=== PATIENT | male | born 1960 | race Caucasian/White ===

== ENCOUNTER → 2025-10-14 08:06 | Outpatient (AMB) | payer OTHER, SELFPAY ==
--- OUTSIDE RECORDS SUMMARY | 2025-10-14 08:09 | XMS_ITS | Clinical Summary ---
Author Organization [address] Address [address] [place] [phone] Phone Care Team Providers Care Finance Executive Name Role Phone Unavailable Primary Care Provider Unavailabl e Allergies No known active allergies Medications atorvastatin (LIPITOR) 10 mg tablet Take 1 tablet (10 mg total) by mouth daily. Active tamsulosin (FLOMAX) 0.4 mg 24 hr capsule Take 1 capsule (0.4 mg total) by mouth daily. Active Encounters Date Type Department Care Team Description 07/18/2025 3:36 PM EDT - 07/18/2025 8:14 PM EDT [facility] [address] [place] [address] Veda Brewer MD Syncope, unspecified syncope type (Primary Dx) Discharge Disposition: Home or Self Care 07/18/2025 Travel from Last 3 Months Social History Tobacco Use Types Packs/Day Years Used Date Smoking Tobacco: Never Assessed Interpersonal Safety Answer Date Record ed Is there anyone in your life that is hurting or threatening you in anyway? no 07/18/2025 Physical Indicators of Abuse No evidence of phys ical abuse 07/18/2025 Sex and Gender Information Value Date Recorded Sex Assigned at Not on file Legal Sex Male 3:36 PM EDT Gender Identity Not on file Sexual Orientation Not on file Last Filed Vital Signs Vital Sign Reading Time Taken Comments Blood Pressure 152/78 07/18/2025 5:16 PM EDT Pulse 54 07/18/2025 5:16 PM EDT Temperature 36.7 C (98 F) 07/18/2025 3:37 PM EDT Respiratory Rate 18 07/18/2025 5:16 PM EDT Oxygen Saturation 98% 07/18/2025 5:16 PM EDT Inhaled Oxygen Concentration - - Weight 79.5 kg (175 lb 4.3 oz) 07/18/2025 3:37 P M EDT Height - - Body Mass Index - - Plan of Treatment Health Maintenance Due Date Last Done Comments HIV screening 1972 Hepatitis C screening 1977 Tetanus adult (Td q 10,TDAP once) 1979 Lipid disorder screening 1999 Colon cancer screening, Colonoscopy 2004 Pneumococcal Vaccine (50+ years) (1 of 1 - PCV) 2009 Shingles vaccine (Shingrix) (1 of 2 - Shingrix (RZV) 2 Dose Standard Series) 2009 Influenza vaccine 05/22/2025 11/12/2021, , 08/22/2018, Additional history exists Covid-19 vaccine series (2 - 2024- season) 2025 07/17/2022 Diabetes screening 07/18/2028 07/18/2025 RSV Immunization (1 - 1-dose 75+ series) 2034 Meningococcal B Vaccine Aged Out No l onger eligible based on patient's age to complete this topic Meningococcal Vaccine Aged Out No rama khushboo eligible based on patient's age to complete this topic Procedures Procedure Name Priority Date/Time Associated Diagnosis Comments CT HEAD WO IV CONTRAST STAT 07/18/2025 6:13 PM EDT TROPONIN T HIGH SENSITIVITY, 1 HOUR WITH REFLEX (BH GH LMW YH) STAT - Timed 07/18/2025 5:07 PM EDT XR CHEST PA AND LATERAL Within 1 hour (STAT) 07/18/2025 3:59 PM EDT BASIC METABOLIC PANEL STAT 07/18/2025 3:58 PM EDT CBC AND DIFFERENTIAL Routine 07/18/2025 3:58 PM EDT MAGNESIUM STAT 07/18/2025 3:58 PM EDT NT-PROBRAIN NATRIURETIC PEPTIDE STAT 07/18/2025 3:58 PM EDT TSH W/REFLEX TO FT4 ( GH LMW Q YH) STAT 07/18/2025 3:58 PM EDT BASIC METABOLIC PANEL STAT 07/18/2025 3:58 PM EDT CBC WITH AUTO DIFFERENTIAL Routine 07/18/2025 3:58 PM EDT TROPONIN T HIGH SENSITIVITY, 0 HOUR BASELINE WITH REFLEX ( GH LMW YH) STAT 07/18/2025 3:58 PM EDT EKG STAT 07/18/2025 3:42 PM EDT from Last 3 Months Results * CT Head wo IV Contrast (07/18/2025 6:13 PM EDT) Anatomical Region Laterality Modality Head, Ortho Head Computed Tomogr aphy 07/18/2025 6:48 PM EDT Impressions 07/19/2025 6:17 AM EDT 1. There is mild generalized atrophy and chronic white matter ischemic change. No acute intracranial abnormality. Reported and signed by: Ricky Chavez MD Narrative 07/19/2025 6:[address] HEAD WO IV CONTRAST HISTORY: syncope. COMPARISON: None. G9637 - RADIATION DOSE ACQUIRED DURING SCAN: 725.6 mGy.cm. The [facility] Imaging Department strives for high quality imaging with the lowest possible radiation dose. For more information on medical radiation exposure please visit: [email or web address] . TECHNIQUE: CT of the head was performed with contiguous axial imaging from the vertex through the base of the skull. No intravenous contrast was administered. FINDINGS: The ventricles and extra-axial CSF containing spaces are diffusely and mildly prominent. There is mild chronic white matter ischemic change in the periventricular white matter. There is no acute hemorrhage. There is no CT evidence of acute stroke. There is no mass effect or shift of the midline structures. Ojeda-white differentiation is well preserved. The calvarium is intact. The paranasal sinuses and mastoid air cells are well aerated. The orbits are unremarkable. Procedure Note Ricky Chavez MD - 07/19/2025 CT HEAD WO IV CONTRAST HISTORY: syncope. COMPARISON: None. G9637 - RADIATION DOSE ACQUIRED DURING SCAN: 725.6 mGy.cm. The [facility] Imaging Department strives for high qualityimaging with the lowest possible radiation dose. For more information onmedical radiation exposure please visit: [email or web address] . TECHNIQUE: CT of the head was performed with contiguous axial imaging fromthe vertex through the base of the skull. No intravenous contrast wasadministered. FINDINGS: The ventricles and extra-axial CSF containing spaces are diffusely andmildly prominent. There is mild chronic white matter ischemic change inthe periventricular white matter. There is no acute hemorrhage. There isno CT evidence of acute stroke. There is no mass effect or shift of themidline structures. Ojeda-white differentiation is well preserved. Thecalvarium is intact. The paranasal sinuses and mastoid air cells are wellaerated. The orbits are unremarkable. IMPRESSION: 1. There is mild generalized atrophy and chronic white matter ischemicchange. No acute intracranial abnormality. Reported and signed by: Ricky Chavez MD [place] [facility] ORDERABLE S Final Result * Troponin T High Sensitivity, 1 Hour With Reflex ( GH LMW Y) (07/18/2025 5:07 PM EDT) [facility] Signature High Sensitivity Troponin T 7 See Comment ng/L 07/18/2025 6:12 PM EDT [facility] Comment:High Sensitivity Tro ponin T levels should be interpreted in the context of the [facility] Care Signature pathway. 1 hour Delta from 0 Hour, HS-Troponin T 1 ng/L 07/18/2025 6:12 PM EDT [facility] Blood Venipuncture / Unknown 07/18/2025 5:07 PM EDT 07/18/2025 5:30 PM EDT us Veda Brewer MD LAB BLOOD ORDERABLES Final Res ult [facility] [address] [place] [address] * XR Chest PA and Lateral (07/18/2025 3:59 PM EDT) Anatomical Region Laterality Modality Chest Radiographic Jennifer ging 07/18/2025 4:0 3 PM EDT Impressions 07/18/2025 4:03 PM EDT No acute lung abnormality. [facility] Radiology Notification System Classification: Routine. Reported and signed by: Deanne Diego MD Narrative 07/18/2025 4:03 PM EDT TWO-VIEW CHEST X-RAY HISTORY: Chest Pain COMPARISON: NONE FINDINGS: Technical limitations: None Lungs/Airways/Pleura: The lungs are clear. No pleural effusions. Heart and Mediastinum: The mediastinal contours are normal. Procedure Note Deanne Diego MD - 07/18/2025 TWO-VIEW CHEST X-RAY HISTORY: Chest Pain COMPARISON: NONE FINDINGS: Technical limitations: None Lungs/Airways/Pleura: The lungs are clear. No pleural effusions. Heart and Mediastinum: The mediastinal contours are normal. IMPRESSION: No acute lung abnormality. [facility] Radiology Notification System Classification: Routine. Reported and signed by: Deanne Diego MD us Veda Brewer MD IMG DIAGNOSTIC IMAGING ORDERAB LES Final Result * (ABNORMAL) Basic metabolic panel (07/18/2025 3:58 PM EDT) Glucose 99 65 - 110 mg/dL 07/18/2025 5:36 PM EDT [facility] Comment: Non-fastin-110 mg/dL Fasting (minimum 6 hrs): 65-99 mg/dL BUN 20(H) 7 - 18 mg/dL 07/18/2025 5:36 PM EDT [facility] Creatinine 1.15 0.70 - 1.30 mg/dL 07/18/2025 5:36 PM EDT [facility] Sodium 140 136 - 145 mmol/L 07/18/2025 5:[address] [facility] Comment:Test repeated and re sults verified. Potassium 3.5 3.5 - 5.1 mmol/L 07/18/2025 5:[address] [facility] Comment:Test repeated and re sults verified. Chloride 109(H) 98 - 107 mmol/L 07/18/2025 5:[address] [facility] Comment:Test repeated and re sults verified. CO2 28 21 - 32 mmol/L 07/18/2025 5:[address] [facility] Comment:Test repeated and re sults verified. Anion Gap 3(L) 5 - 15 mmol/L 07/18/2025 5:[address] [facility] Calcium 9.5 8.5 - 10.1 mg/dL 07/18/2025 5:[address] [facility] eGFR (Creatinine) >60 >=60 mL/min/1.7 3m2 07/18/2025 5:[address] [facility] Comment: [facility] utilizes CKD-EPI Creatinine 2020 to report eGFR. Values < 60 mL/min/1.73 m2 may indicate CKD if present for more than three months AND creatinine is at steady state. The eGFR provides a rough estimate of kidney function. For further guidance, please refer to the CKD: Adult [facility] Signature pathway. Creatinine Delta 07/18/2025 5:[address] [facility] Comment:No previous creatini ne <5.00 mg/dL is available within the previous 12 months to calculate a delta creatinine. Blood Venipuncture / Unknown 07/18/2025 3:58 PM EDT 07/18/2025 4:11 PM EDT us Veda Brewer MD LAB BLOOD ORDERABLES Final Res ult [facility] [address] [place] [address] * TSH w/reflex to FT4 (07/18/2025 3:58 PM EDT) TSH 3.69 0.36 - 3.74 uIU/mL 07/18/2025 5:[address] [facility] Blood Venipuncture / Unknown 07/18/2025 3:58 PM EDT 07/18/2025 4:11 PM EDT [facility] BLOOD ORDERA BLES Final Result Performing Organization Address [facility] de Phone Number [facility] [address] [place] [address] * Troponin T High Sensitivity, Emergency; 0 hour baseline AND 1 hour with reflex (3 hour) (53:58 PM EDT) [facility] High Sensitivity Troponin T <6 See Comment ng/L 07/18/2025 4:[address] [facility] Comment:High Sensitivity Tro ponin T levels should be interpreted in the context of the [facility] Care Signature pathway. Blood Venipuncture / Unknown 07/18/2025 3:58 PM EDT 07/18/2025 4:11 PM EDT Veda Brewer MD LAB BLOOD ORDERABLES Final Res ult Performing Organization Address [facility] de Phone Number [facility] [address] [place] [phone] * NT-proBrain natriuretic peptide (07/18/2025 3:58 PM EDT) [facility] NT-proBNP 57.0 <125.0 pg/mL 07/18/2025 5:[address] [facility] Blood Venipuncture / Unknown 07/18/2025 3:58 PM EDT 07/18/2025 4:11 PM EDT [facility] LAB BLOOD ORDERA BLES Final Result Performing Organization Address City/[facility] Co de Phone Number [facility] [address] [place] [address] * (ABNORMAL) CBC auto differential (07/18/2025 3:58 PM EDT) [facility] WBC 7.3 4.0 - 11.0 x1000/ L 07/18/2025 4:[address] [facility] RBC 4.16 4.00 - 6.00 M/ L 07/18/2025 4:[address] [facility] Hemoglobin 12.6(L) 13.2 - 17.1 g/dL 07/18/2025 4:[address] [facility] Hematocrit 38.80 38.50 - 50.00 % 07/18/2025 4:[address] [facility] MCV 93.3 80.0 - 100.0 fL 07/18/2025 4:[address] [facility] MCH 30.3 27.0 - 33.0 pg 07/18/2025 4:[address] [facility] MCHC 32.5 31.0 - 36.0 g/dL 07/18/2025 4:[address] [facility] RDW-CV 12.6 11.0 - 15.0 % 07/18/2025 4:[address] [facility] Platelets 180 150 - 420 x1000/ L 07/18/2025 4:[address] [facility] MPV 9.0 8.0 - 12.0 fL 07/18/2025 4:[address] [facility] Neutrophils 58.0 39.0 - 72.0 % 07/18/2025 4:[address] [facility] Lymphocytes 31.6 17.0 - 50.0 % 07/18/2025 4:[address] [facility] Monocytes 8.2 4.0 - 12.0 % 07/18/2025 4:[address] [facility] Eosinophils 1.8 0.0 - 5.0 % 07/18/2025 4:[address] [facility] Basophil 0.3 0.0 - 1.4 % 07/18/2025 4:[address] [facility] Immature Granulocytes 0.1 0.0 - 1.0 % 07/18/2025 4:[address] [facility] nRBC 0.0 0.0 - 1.0 % 07/18/2025 4:[address] [facility] Absolute Lymphocyte Count 2.30 0.60 - 3.70 x 1000/ L 07/18/2025 4:[address] [facility] Monocyte Absolute Count 0.60 0.00 - 1.00 x 1000/ L 07/18/2025 4:[address] [facility] Eosinophil Absolute Count 0.13 0.00 - 1.00 x 1000/ L 07/18/2025 4:[address] [facility] Basophil Absolute Count 0.02 0.00 - 1.00 x 1000/ L 07/18/2025 4:[address] [facility] Absolute Immature Granulocyte Count 0.01 0.00 - 0.30 x 1000/ L 07/18/2025 4:[address] [facility] Absolute nRBC 0.00 0.00 - 1.00 x 1000/ L 07/18/2025 4:[address] [facility] ANC (Abs Neutrophil Count) 4.22 2.00 - 7.60 x 1000/ L 07/18/2025 4:[address] [facility] Blood Venipuncture / Unknown 07/18/2025 3:58 PM EDT 07/18/2025 4:11 PM EDT us Veda Brewer MD LAB BLOOD ORDERABLES Final Res ult [facility] [address] [place] [phone] * Magnesium (07/18/2025 3:58 PM EDT) [facility] Magnesium 2.4 1.6 - 2.6 mg/dL 07/18/2025 4:[address] [facility] Blood Venipuncture / Unknown 07/18/2025 3:58 PM EDT 07/18/2025 4:11 PM EDT us [place] [facility] LAB BLOOD ORDERA BLES Final Result [facility] [address] [place] [address] * EKG (07/18/2025 3:42 PM EDT) Heart Rate 51 bpm LM EKG QRS Interval 98 ms LM EKG QT Interval 442 ms LM EKG QTC Interval 408 ms LM EKG P Newcomb 33 deg LM EKG QRS Newcomb -7 deg LM EKG T Wave Newcomb 0 deg LM EKG P-R Interval [address] [facility] EKG SEVERITY Abnormal ECG severity [facility] EKG Comment::SINUS BRADYCARDIA:N onspecific T abnormalities, lateral leads:NO PRIOR EKG AVAILABLE FOR COMPARISON.:Electronically Signed On 07-18-2025 20:44:47 EDT by Coni Hall MD OTHER / Unknown 07/18/2025 3 :42 PM EDT us Veda Brewer MD ECG ORDERABLES Edited Result - Final Performing Organization Address [facility] Co de Phone Number [facility] EKG from Last 3 Months Insurance MEDICARE [facility]
--- OUTSIDE RECORDS SUMMARY | 2025-10-14 08:09 | XMS_ITS ---
Author Name [facility] Organization Unknown Results Test Name/Text Value Interpretation Date Range Source Troponin T SerPl HS-mCnc 1.0 ng/L 07/18/2025 [facility] TSH SerPl DL<=0.005 mIU/L-aCnc 3.69 uIU/mL 07/18/2025 0.36 - 3.74 [facility] Calcium SerPl-mCnc 9.5 mg/dL 07/18/2025 8.5 - 10.1 [facility] Anion Gap SerPl Calculated.3Ions-sCnc 3.0 mmol/L Below low normal 07/18/2025 5 - 15 [facility] HCO3 SerPl-sCnc 28.0 mmol/L 07/18/2025 21 - 32 Y [facility] Glucose SerPl-mCnc 99.0 mg/dL 07/18/2025 65 - 110 [facility] BKR CREATININE DELTA 07/18/2025 [facility] Sodium SerPl-sCnc 140.0 mmol/L 07/18/2025 136 - 14 5 [facility] Potassium SerPl-sCnc 3.5 mmol/L 07/18/2025 3.5 - 5 .1 [facility] GFR SerPlBld Creatinine-bsd fmla CKD-EPI >60.0 mL/min/1.73m2 07/18/2025 - [facility] Creat SerPl-mCnc 1.15 mg/dL 07/18/2025 0.7 - 1.3 Y [facility] Chloride SerPl-sCnc 109.0 mmol/L Above high normal 98 - 107 [facility] BUN SerPl-mCnc 20.0 mg/dL Above high normal 07/18/2025 7 - 1 8 [facility] NT-proBNP SerPl-mCnc 57.0 pg/mL 07/18/2025 - 125 [facility] Magnesium SerPl-mCnc 2.4 mg/dL 07/18/2025 1.6 - 2. 6 [facility] Troponin T SerPl HS-mCnc <6.0 ng/L 07/18/2025 - [facility] MCHC RBC Auto-EntMCnc 32.5 g/dL 07/18/2025 31 - 36 [facility] Imm Granulocytes # Bld Auto 0.01 x 1000/uL 07/18/2025 0 - 0.3 [facility] Platelet # Bld Auto 180.0 x1000/uL 07/18/2025 150 - 420 [facility] RBC Auto 93.3 fL 07/18/2025 80 - 100 [facility] Neutrophils # Bld Auto 4.22 x 1000/uL 07/18/2025 2 - 7.6 [facility] nRBC Bld Auto-Rto 0.0 % 07/18/2025 0 - 1 [facility] RBC # Bld Auto 4.16 M/uL 07/18/2025 4 - 6 [facility] PMV Bld Auto 9.0 fL 07/18/2025 8 - [address] Eosinophil NFr Bld Auto 1.8 % 07/18/2025 0 - 5 [facility] nRBC # Bld Auto 0.0 x 1000/uL 07/18/2025 0 - 1 [facility] Monocytes NFr Bld Auto 8.2 % 07/18/2025 4 - 12 [facility] MCH RBC Qn Auto 30.3 pg 07/18/2025 27 - 33 [facility] RDW RBC Auto 12.6 % 07/18/2025 11 - [address] Hgb Bld-mCnc 12.6 g/dL Below low normal 07/18/2025 13.2 - 17 .1 [facility] Hct VFr Bld Auto 38.8 % 07/18/2025 38.5 - 50 [facility] Eosinophil # Bld Auto 0.13 x 1000/uL 07/18/2025 0 - 1 [facility] WBC # Bld Auto 7.3 x1000/uL 07/18/2025 4 - 11 [facility] Monocytes # Bld Auto 0.6 x 1000/uL 07/18/2025 0 - 1 [facility] Basophils NFr Bld Auto 0.3 % 07/18/2025 0 - 1.4 [facility] Neutrophils NFr Bld Auto 58.0 % 07/18/2025 39 - 72 [facility] Lymphocytes NFr Bld Auto 31.6 % 07/18/2025 17 - 50 [facility] Lymphocytes # Bld Auto 2.3 x 1000/uL 07/18/2025 0.6 - 3.7 [facility] Imm Granulocytes NFr Bld Auto 0.1 % 07/18/2025 0 - 1 [facility] Basophils # Bld Auto 0.02 x 1000/uL 07/18/2025 0 - 1 [facility] Encounters Encounter Type Encounter Reason Primary Diagnosis Location Date Emergency Syncope and collapse Syncope and collapse [facility] 07/18/2025 Care Team Organization Name Specialty Phone Email Start Date End Da te [facility] [employer] 03/29/2024 1
--- NOTE | 2025-10-14 08:39 | MHC.OFFVIS ---
Intake Visit Reasons: syncope Medication List - Last Reconciled 10/14/25 by Carla Elizabeth MD atorvastatin (Lipitor) 10 mg PO DAILY metoprolol succinate ER 25 mg PO DAILY tamsulosin 0.4 mg PO DAILY HPI Comments Details: This is a generally healthy 65-year-old right-handed man with a history of mild hypertension and hyperlipidemia who was on a boat in June and was sitting with for friends and he apparently passed out in the sitting position. He did not fall down or collapse. He was not responding for about 2 minutes. Initially he was thought to be sleeping. He remembers waking up and when he got up he felt lightheaded. He also felt slight nausea. There was no seizure activity noted. He had no warning before. There was no chest pain or palpitation or shortness of breath. He was seen at a hospital in [facility] and had labs which showed that he was dehydrated and a CT scan of the brain which was normal. Subsequently he has had a stress test which was normal. He has felt fine with no further episodes of dizziness or syncope. He had 1 previous episode of dehydration on a trip to [facility] in 2019 and became lightheaded but did not pass out. Review of Systems Card Reports syncope Neuro Reports syncope Physical Exam Neuro Other: Mini Mental Status Exam Level of Consciousness:?Alert.? Orientation:?Knows correct year, month, date, day and season.?Knows correct city, county and state. Knows correct location and floor.? Registration:?Able to register 3 objects.? Attention:?Serial 7's performed?? accurately.? Recall:?Able to recall 3 out of 3 objects.? Language:?Normal spontaneous speech, fluency, repetition, naming, comprehension, reading, and writing.? ?? Total Score:?30/30.? Neurological Abnormal neurological findings:??None. ? Mental Status:?Alert and oriented X 3.?Normal attention, orientation, memory, and affect.? Cranial Nerves:?Pupils are equal, round and reactive to light. Fundoscopy shows normal disc bilaterally. External ocular muscles are intact. Visual barker are full, no ptosis. Face is symmetrical, no facial weakness or droop. Facial sensations are normal.? Tongue protrudes in midline. Palate elevates symmetrically. Shoulder?? shrugging is normal.? Motor Examination:?Normal muscle tone, bulk and strength.?No atrophy or fasciculations.?No drift of the extended upper extremities.?Deep tendon reflexes are 2+.?Plantars?? are flexor.? ?Motor Strength:? Proximal Muscles (out of 5):?5 Distal Muscles (out of 5):?5 Neck Flexors (out of 5):?5 Neck Extensors (out of 5):?5 Deltoid (out of 5):?5 Biceps (out of 5):?5 Triceps (out of 5):?5 Serratus Anterior (out of 5):?5 Wrist Extensors (out of 5):?5 APB (out of 5):?5 Finger Spread (out of 5):?5 Ileopsoas (out of 5):?5 Quadriceps (out of 5):?5 Hamstrings (out of 5):?5 Tibialis Anterior (out of 5):?5 Peronei (out of 5):?5 EDB (out of 5):?5 Gastrocnemius (out of 5):?5 Straight Leg Raising:?90 degrees.? Sensory Exam:?Normal light touch,?? temperature, pinprick, vibration and joint-position sensations.?Rhomberg?? sign is absent.? Coordination:?No ataxia,?no titubation,?bylmmf-nd-drdt, yfio-guyz-gkpz test, and rapid alternating?? movements were normal.? Gait Exam:?Normal. ? Cerebellar Signs:?Vwellf-kv-cgfe and?? elwc-te-kkuh is normal.?No dysdiadochokinesia.? Extrapyramidal System:?No tremor or?rigidity, normal facial expressions.?No bradykinesia. No bradyphrenia. Normal arm swing and posture. No propulsion or retropulsion.? Speech:?Normal,?no dysphasia or dysarthria.? General Examination GENERAL APPEARANCE:??Morbid obesity, in no acute distress?.? ?? HEAD:??normocephalic,?atraumatic.? ?? EYES:??sclera non-icteric,?conjunctiva clear.? ?? EARS:??auditory canal clear,?tympanic membrane intact, clear.? ?? NOSE:??no lesions.? ?? ORAL CAVITY:??gums normal,?mucosa moist,?no lesions.? ?? THROAT:??clear.? ?? NECK/THYROID:??no cervical lymphadenopathy,?thyroid normal,?neck supple, full range of motion,?no carotid bruit.? ?? SKIN:??no rashes,?no significant?? birthmarks.? ?? HEART:??S1, S2 normal,?no murmurs? ?? LUNGS:??clear anteriorly and? posteriorly? ?? CHEST:??no gross rib deformity,?clear to? auscultation.? ?? BACK:??normal exam of spine.? ?? MUSCULOSKELETAL:??normal.? ?? EXTREMITIES:??no edema.? ?? PERIPHERAL PULSES:??normal.? ?? PSYCH:??alert, oriented,?cognitive function intact,?cooperative Assessment & Plan Assessment & Plan (1) Syncope: Code(s): R55 - Syncope and collapse Category: Medical Plan His workup has been completed with no positive findings. He has been feeling fine. At this point because of the low probability of this being a seizure we are not going to pursue this further with an EEG. The patient will call if there is any further symptoms. Coding Level of Care Code New Pt Level 5 (34621) Diagnoses Syncope R55
== END ==
LOC: HO.HSM 08:07
PROVIDERS: PCP Family Medicine; Visit Provider Psychiatry & Neurology Neurology
DX: R55 Syncope and collapse (principal)
CPT/HCPCS: 99205